=== PATIENT | female | born 1940 | race Caucasian/White ===

== ENCOUNTER 2017-11-03 06:20 | Inpatient (IN) | payer MEDICARE, MEDICAID ==
[2017-10-30 14:00] LABS: BASOPHILS % (AUTO) 0.5 % (0-1); EOSINOPHILS # (AUTO) 0.2 X10'3 (0-0.9); EOSINOPHILS % (AUTO) 3.4 % (0-6); LYMPHOCYTES # (AUTO) 2.8 X10'3 (1.1-4.8); LYMPHOCYTES % (AUTO) 43.6 % (21-51); MEAN CORPUSCULAR HEMOGLOBIN 30.4 PG (27.0-31.0); MEAN CORPUSCULAR HGB CONC 34.3 % (33.0-36.5); MEAN CORPUSCULAR VOLUME 88.7 FL (78-98); MONOCYTES # (AUTO) 0.7 X10'3 (0-0.9); MONOCYTES % (AUTO) 10.5 % (2-12); NEUTROPHILS # (AUTO) 2.7 X10'3 (1.8-7.7); PRE OP HEMATOCRIT 43.7 % (35.0-45.0); PRE OP PLATELET COUNT 329 X10'3 (140-440); RED BLOOD COUNT 4.93 X10'6 (4.20-5.60); RED CELL DISTRIBUTION WIDTH 12.9 % (11.5-14.5)
[2017-10-30 14:05] LABS: CLARITY,URINE Clear (Clear); COLOR,URINE Yellow (Yellow); GLUCOSE, URINE Negative (Neg); KETONES,URINE Negative (Neg); LEUKOCYTE ESTERASE ,URINE Moderate (Neg); NITRITES, URINE Negative (Neg); OCCULT BLOOD,URINE Negative (Neg); PH,URINE 6.5 (4.8-8.0); PROTEIN,URINE Negative (Neg)
[2017-10-30 14:11] LABS: UA COLLECTION TYPE NON-SPECIFIED
[2017-10-30 14:12] LABS: BACTERIA,URINE NONE SEEN /HPF (Neg); RBC,URINE 0-2 /HPF (0-2); TRANSITIONAL EPI CELLS,URINE FEW /HPF; WBC,URINE 0-4 /HPF (0-4)
[2017-10-30 14:13] LABS: HYALINE CASTS 0-3 /LPF (NEGATIVE); MUCUS STRANDS MODERATE /LPF (Neg); SQUAMOUS EPITHELIAL CELL,UR MODERATE /LPF (FEW)
[2017-10-30 14:14] LABS: ALBUMIN 4.3 G/DL (3.4-5.0); ALBUMIN/GLOBULIN RATIO 1.1 (1.1-1.5); ALKALINE PHOSPHATASE 83 IU/L (46-116); BLOOD UREA NITROGEN 19 MG/DL (7-18); BUN/CREATININE RATIO 17.3 (6.6-38.0); CALCIUM 9.9 MG/DL (8.5-10.1); CHLORIDE 104 MMOL/L (99-107); HEMOGLOBIN A1C 5.9 % (4.5-6.2); PRE OP ALT 27 U/L (30-65); PRE OP ANION GAP 10 (8-16); PRE OP AST 20 U/L (10-37); PRE OP BILIRUB, TOTAL 0.3 MG/DL (0.0-1.0); PRE OP GLUCOSE 120 MG/DL (70-104); PRE OP POTASSIUM 4.2 MMOL/L (3.4-5.1); PRE OP SODIUM 143 MMOL/L (135-145); TOTAL CARBON DIOXIDE 28.8 MMOL/L (24-32); TOTAL PROTEIN 8.2 G/DL (6.4-8.2); eGFR 49 ML/MIN
[~2017-11-03] VITALS: Ht 154.9 cm; Wt 62.9 kg
[2017-11-03] VITALS (19 sets, daily range): BP systolic 97–136; BP diastolic 44–76
[~2017-11-03 06:20] MED LIST: ADAL40PE SUBCUT; CYAN100087 IM; DRON400T2 PO; DULO-31 PO; EVOL140S SQ; HYDR200T PO; LIRA0.6P SQ; LIRA0.6P2 SUBCUT; METO-384 PO; PRAS10TA10 PO; ZES2.5T PO; famotidine 20mg tablet PO ONE; ringers solution, lacted 1,000 ML IV SCH
[2017-11-03] MEDS ORDERED: ketorolac trometh. 30mg/ml inj. ONE (06:50)
[2017-11-03] MEDS ORDERED: vancomycin 1,000mg inj ONE (06:51)
[2017-11-03] MEDS ORDERED: ROPIVAcaine 0.5% (5mg/ml) 30ml vial ONE ×2 (06:51→08:06)
[2017-11-03] MEDS ORDERED: ceFAZolin 2gm in dextrose, iso 100 ML IV ONE (07:15)
[2017-11-03] MEDS ORDERED: tranexamic acid inj. 630 MG in normal saline 100ml IV soln 93.7 ML IV ONE (07:16)
[2017-11-03] MEDS ORDERED: LIDOcaine 1% (10mg/ml) 2ml vial ONE (07:20)
[2017-11-03] MEDS ORDERED: vancomycin/NS 1 GM ADD-VANTAGE 250 ML X 1 DOSE IV ONE (07:30)
[2017-11-03] MEDS ORDERED: propofol inj 20 ML IV ONE ×2 (07:59)
[2017-11-03] MEDS ORDERED: LIDOcaine 1%/PF (10mg/ml) 5ml vial ONE ×2 (07:59→08:00)
[2017-11-03] MEDS ORDERED: ePHEDrine 50MG/ML INJ. ONE (08:00)
[2017-11-03] MEDS ORDERED: dexamethasone sod phosphate 4mg/ml inj. ONE (08:00)
[2017-11-03] MEDS ORDERED: ondansetron/PF 4mg/2ml inj ONE (08:00)
[2017-11-03] MEDS ORDERED: phenylephrine 10mg/ml inj IV ONE (08:00)
[2017-11-03] MEDS ORDERED: fentaNYL/PF 50MCG/1 ML 2ML syringe ONE (08:18)
[2017-11-03] MEDS ORDERED: MORPHINE SULFATE/PF 0.5 MG/ML 10ML AMPUL ONE (08:20)
[2017-11-03] MEDS ORDERED: midazolam 2 mg/2 ml injection ONE (08:20)
[2017-11-03] MEDS ORDERED: epiNEPHrine 1 mg/ml inj ONE (09:38)
[2017-11-03] MEDS ORDERED: ringers solution, lacted 1,000 ML IV SCH (10:51)
[2017-11-03] MEDS ORDERED: ondansetron/PF 4mg/2ml inj IV PRN ×2 (10:55→12:05)
[2017-11-03] MEDS ORDERED: labetalol 5mg/ml 20ml inj. IV PRN (10:55)
[2017-11-03] MEDS ORDERED: proCHLORperazine 10 MG/2 ml inj IV PRN (10:55)
[2017-11-03] MEDS ORDERED: fentaNYL/PF 50MCG/1 ML 2ML syringe IV PRN ×2 (10:55)
[2017-11-03] MEDS ORDERED: HYDROmorphone 1 mg/ml syringe IV PRN ×4 (10:55→12:05)
[2017-11-03] MEDS ORDERED: meperidine/PF 25mg/ml syringe IV ONE (10:55)
[2017-11-03] MEDS: potassium cl 20mEq in 1/2 NS 1,000 ML IV SCH ×2 (12:01→20:19)
[2017-11-03] MEDS ORDERED: diphenhydrAMINE 25mg capsule PO PRN ×2 (12:05)
[2017-11-03] MEDS ORDERED: non-formulary drug (Adalimumab (Humira) 1 SYR) SUBCUT SCH (12:05)
[2017-11-03] MEDS ORDERED: EVOLOCUMAB 140 MG SQ SCH (12:05)
[2017-11-03] MEDS ORDERED: acetaminophen 325mg tablet PO PRN (12:05)
[2017-11-03] MEDS ORDERED: bisacodyl 10mg suppository rectal RC PRN (12:05)
[2017-11-03] MEDS ORDERED: oxyCODONE IR 5mg (immed. release) tablet PO PRN (12:05)
[2017-11-03] MEDS ORDERED: magnesium hydroxide 30ml (MOM) UD suspension PO PRN (12:05)
[2017-11-03] MEDS: gabapentin 300mg capsule PO SCH ×2 (13:00→20:18)
[2017-11-03] MEDS: acetaminophen 325mg tablet PO SCH ×2 (13:57→20:18)
[2017-11-03] MEDS: ketorolac tromethamine 15mg/ml inj. IV SCH ×2 (14:32→20:18)
[2017-11-03] MEDS ORDERED: tranexamic acid inj. 630 MG in normal saline 100ml IV soln 100 ML IV ONE (15:00)
[2017-11-03] MEDS: cefazolin 1gm/NS 100mL 100 ML IV SCH ×2 (16:08→23:59)
[2017-11-03] MEDS ORDERED: EVOLOCUMAB SQ SCH (17:00)
[2017-11-03] MEDS: celeCOXIB 100mg capsule PO SCH (20:00)
[2017-11-03] MEDS ORDERED: vancomycin/NS 1 GM ADD-VANTAGE 250 ML IV SCH (20:00)
[2017-11-03] MEDS: dronedarone hcl 400mg tablet PO SCH (20:18)
[2017-11-03] MEDS: sennosides 8.6mg tablet PO SCH (20:19)
[2017-11-03] MEDS ORDERED: diphenhydrAMINE 50 mg/ml inj IV PRN (21:10)
[2017-11-04 02:00] VITALS: BP 90/52
[2017-11-04] MEDS: ketorolac tromethamine 15mg/ml inj. IV SCH ×4 (02:40→19:42)
[2017-11-04] MEDS: acetaminophen 325mg tablet PO SCH ×4 (02:40→19:42)
[2017-11-04] MEDS: potassium cl 20mEq in 1/2 NS 1,000 ML IV SCH ×3 (04:01→13:46)
[2017-11-04] MEDS: oxyCODONE IR 5mg (immed. release) tablet PO PRN ×5 (05:45→21:31)
[2017-11-04 06:00] VITALS: BP 91/60
[2017-11-04 07:15] LABS: BASOPHILS % (AUTO) 0.1 % (0-1); EOSINOPHILS # (AUTO) 0.2 X10'3 (0-0.9); EOSINOPHILS % (AUTO) 1.3 % (0-6); HEMATOCRIT 28.2 % (35.0-45.0); LYMPHOCYTES # (AUTO) 1.7 X10'3 (1.1-4.8); LYMPHOCYTES % (AUTO) 13.8 % (21-51); MEAN CORPUSCULAR HEMOGLOBIN 30.9 PG (27.0-31.0); MEAN CORPUSCULAR HGB CONC 35.4 % (33.0-36.5); MEAN CORPUSCULAR VOLUME 87.4 FL (78-98); MEAN PLATELET VOLUME 7.8 FL (7.4-10.4); MONOCYTES # (AUTO) 1.1 X10'3 (0-0.9); MONOCYTES % (AUTO) 8.8 % (2-12); NEUTROPHILS # (AUTO) 9.2 X10'3 (1.8-7.7); PLATELET COUNT 208 X10'3 (140-440); RED BLOOD COUNT 3.23 X10'6 (4.20-5.60); RED CELL DISTRIBUTION WIDTH 12.5 % (11.5-14.5); WHITE BLOOD COUNT 12.1 X10'3 (4.5-11.0)
[2017-11-04] MEDS: metoprolol succinate 25mg (24-HOUR) SR. Tablet PO SCH (07:16)
[2017-11-04] MEDS: dronedarone hcl 400mg tablet PO SCH ×2 (07:16→19:42)
[2017-11-04] MEDS: gabapentin 300mg capsule PO SCH ×3 (07:17→21:31)
[2017-11-04] MEDS: celeCOXIB 100mg capsule PO SCH ×2 (07:17→20:00)
[2017-11-04] MEDS: prasugrel 10mg tablet PO SCH (07:17)
[2017-11-04] MEDS: hydroxychloroquine 200mg tablet PO SCH (07:18)
[2017-11-04] MEDS: duloxetine 30mg CAPSULE.DR PO SCH (07:19)
[2017-11-04] MEDS: lisinopril 5mg tablet PO SCH (07:21)
[2017-11-04 07:37] LABS: ANION GAP 8 (8-16); CHLORIDE 107 MMOL/L (99-107); POTASSIUM 4.6 MMOL/L (3.5-5.1); SODIUM 139 MMOL/L (135-145)
[2017-11-04] MEDS: aspirin 325mg tablet PO SCH (07:39)
[2017-11-04] MEDS ORDERED: LIRAGLUTIDE 1.8 MG SQ SCH (08:00)
[2017-11-04] MEDS ORDERED: LIRAGLUTIDE 1.8 MG SUBCUT SCH (08:00)
[2017-11-04] MEDS ORDERED: non-formulary drug (Metoprolol Succinate 1 TAB) PO SCH (08:00)
[2017-11-04 10:00] VITALS: BP 85/52
[2017-11-04 14:00] VITALS: BP 110/51
[2017-11-04] MEDS: VICTOZA 1.8 MG SQ SCH (17:30)
[2017-11-04 18:00] VITALS: BP 85/52
[2017-11-04] MEDS: sennosides 8.6mg tablet PO SCH (21:32)
[2017-11-04 22:00] VITALS: BP 131/81
[2017-11-04] MEDS ORDERED: HYDROmorphone 2mg/ml vial IV PRN (23:05)
[2017-11-04] MEDS: HYDROmorphone 2mg/ml vial IV PRN (23:11)
[2017-11-05] MEDS: oxyCODONE IR 5mg (immed. release) tablet PO PRN ×3 (02:40→12:39)
[2017-11-05] MEDS: acetaminophen 325mg tablet PO SCH ×2 (02:40→08:22)
[2017-11-05] MEDS: potassium cl 20mEq in 1/2 NS 1,000 ML IV SCH (04:01)
[2017-11-05] MEDS: HYDROmorphone 2mg/ml vial IV PRN ×2 (05:51→14:05)
[2017-11-05 06:00] VITALS: BP 114/58
[2017-11-05 06:41] LABS: BASOPHILS # (AUTO) 0.1 X10'3 (0-0.2); BASOPHILS % (AUTO) 0.9 % (0-1); EOSINOPHILS # (AUTO) 0.5 X10'3 (0-0.9); EOSINOPHILS % (AUTO) 5.1 % (0-6); HEMATOCRIT 29.4 % (35.0-45.0); HEMOGLOBIN 9.9 g/dl (12.0-16.0); LYMPHOCYTES # (AUTO) 3.3 X10'3 (1.1-4.8); LYMPHOCYTES % (AUTO) 34.1 % (21-51); MEAN CORPUSCULAR HEMOGLOBIN 30.4 PG (27.0-31.0); MEAN CORPUSCULAR HGB CONC 33.7 % (33.0-36.5); MEAN PLATELET VOLUME 7.7 FL (7.4-10.4); MONOCYTES # (AUTO) 1.2 X10'3 (0-0.9); MONOCYTES % (AUTO) 12.6 % (2-12); NEUTROPHILS # (AUTO) 4.5 X10'3 (1.8-7.7); NEUTROPHILS % (AUTO) 47.3 % (42-75); PLATELET COUNT 221 X10'3 (140-440); RED BLOOD COUNT 3.27 X10'6 (4.20-5.60); RED CELL DISTRIBUTION WIDTH 13.1 % (11.5-14.5); WHITE BLOOD COUNT 9.6 X10'3 (4.5-11.0)
[2017-11-05] MEDS: aspirin 325mg tablet PO SCH (08:21)
[2017-11-05] MEDS: gabapentin 300mg capsule PO SCH ×3 (08:21→20:39)
[2017-11-05] MEDS: prasugrel 10mg tablet PO SCH (08:22)
[2017-11-05] MEDS: dronedarone hcl 400mg tablet PO SCH ×2 (08:22→20:39)
[2017-11-05] MEDS: metoprolol succinate 25mg (24-HOUR) SR. Tablet PO SCH (08:23)
[2017-11-05] MEDS: lisinopril 5mg tablet PO SCH (08:23)
[2017-11-05] MEDS: duloxetine 30mg CAPSULE.DR PO SCH (08:23)
[2017-11-05] MEDS: hydroxychloroquine 200mg tablet PO SCH (08:23)
[2017-11-05] MEDS: VICTOZA 1.8 MG SQ SCH (08:29)
[2017-11-05 09:52] VITALS: BP 99/53
[2017-11-05] MEDS ORDERED: acetaminophen 325mg tablet PO PRN (12:05)
[2017-11-05 18:00] VITALS: BP 102/63
[2017-11-05] MEDS: sennosides 8.6mg tablet PO SCH (20:41)
[2017-11-06] MEDS: oxyCODONE IR 5mg (immed. release) tablet PO PRN (01:07)
[2017-11-06] MEDS ORDERED: morphine 10mg/ml inj. IV PRN (04:00)
[2017-11-06] MEDS ORDERED: morphine 5 MG/ML injection IV PRN (04:00)
[2017-11-06 06:00] VITALS: BP 116/53
[2017-11-06] MEDS ORDERED: oxyCODONE/APAP 10/325mg tablet PO PRN (06:05)
[2017-11-06 06:22] LABS: BASOPHILS % (AUTO) 0.4 % (0-1); EOSINOPHILS # (AUTO) 0.5 X10'3 (0-0.9); EOSINOPHILS % (AUTO) 4.6 % (0-6); HEMATOCRIT 28.8 % (35.0-45.0); HEMOGLOBIN 9.9 g/dl (12.0-16.0); LYMPHOCYTES # (AUTO) 2.8 X10'3 (1.1-4.8); MEAN CORPUSCULAR HEMOGLOBIN 30.4 PG (27.0-31.0); MEAN CORPUSCULAR HGB CONC 34.5 % (33.0-36.5); MONOCYTES # (AUTO) 1.1 X10'3 (0-0.9); NEUTROPHILS # (AUTO) 6.4 X10'3 (1.8-7.7); PLATELET COUNT 221 X10'3 (140-440); RED BLOOD COUNT 3.27 X10'6 (4.20-5.60); WHITE BLOOD COUNT 10.9 X10'3 (4.5-11.0)
[2017-11-06] MEDS: oxyCODONE/APAP 10/325mg tablet PO PRN ×2 (07:00→12:12)
[2017-11-06] MEDS: prasugrel 10mg tablet PO SCH (07:20)
[2017-11-06] MEDS: dronedarone hcl 400mg tablet PO SCH (07:21)
[2017-11-06] MEDS: hydroxychloroquine 200mg tablet PO SCH (07:22)
[2017-11-06] MEDS: gabapentin 300mg capsule PO SCH ×2 (07:22→12:10)
[2017-11-06] MEDS: duloxetine 30mg CAPSULE.DR PO SCH (07:23)
[2017-11-06] MEDS: lisinopril 5mg tablet PO SCH (07:24)
[2017-11-06] MEDS: metoprolol succinate 25mg (24-HOUR) SR. Tablet PO SCH (07:24)
[2017-11-06] MEDS: VICTOZA 1.8 MG SQ SCH (07:26)
[2017-11-06] MEDS: aspirin 325mg tablet PO SCH (07:28)
[2017-11-06 10:00] VITALS: BP 105/62
== END 2017-11-06 13:10 | DRG 470 ==
LOC: PAS IN 06:20 → EDSTATUS 08:30 → ORTHO 4S 13:30
PROVIDERS: ADMIT Orthopaedic Surgery; ATTEND Orthopaedic Surgery
PROC: 3E0T3BZ Introduction of Anesthetic Agent into Peripheral Nerves and Plexi, Percutaneous Approach (ICD-10-PCS; 2017-11-03)
PROC: 8E0YXCZ Robotic Assisted Procedure of Lower Extremity (ICD-10-PCS; 2017-11-03)
PROC: 8E0YXBZ Computer Assisted Procedure of Lower Extremity (ICD-10-PCS; 2017-11-03)
PROC: 0SRD0J9 Replacement of Left Knee Joint with Synthetic Substitute, Cemented, Open Approach (ICD-10-PCS; principal; 2017-11-03 09:43)
DX: M17.0 Bilateral primary osteoarthritis of knee (principal); D62 Acute posthemorrhagic anemia; M32.9 Systemic lupus erythematosus, unspecified; I48.2 Chronic atrial fibrillation; E11.9 Type 2 diabetes mellitus without complications; E78.5 Hyperlipidemia, unspecified; I10 Essential (primary) hypertension; I25.10 Atherosclerotic heart disease of native coronary artery without angina pectoris; F32.9 Major depressive disorder, single episode, unspecified; Z88.2 Allergy status to sulfonamides; Z79.899 Other long term (current) drug therapy
CPT/HCPCS: 36415; 80051; 80053; 81001; 82948; 83036; 85025; 87070; 87088; 97110; 97116; 97161; 97530; A6255; A6449; A6455; A7000; C1713; C1758; C1776; J0171; J0690; J1100; J1170; J1200; J1885; J2001; J2250; J2274; J2370; J2405; J2704; J2795; J3010; J3370; J3490; J7030; J7120; Q0163

== ENCOUNTER 2025-06-14 16:10 | Outpatient (CLI) | payer MEDICARE, MEDICAID ==
[~2025-06-14 16:10] MED LIST changes: -DRON400T2 PO; +DRON400T7 PO; -EVOL140S SQ; +EVOL140S2 SQ; -HYDR200T PO; +HYDR200T80 PO; -famotidine 20mg tablet PO ONE; -ringers solution, lacted 1,000 ML IV SCH
--- NOTE | 2025-06-14 16:58 | RADIOLOGY REPORT ---
EXAM: DI ANKLE, COMPLETE(3VW MIN) INDICATION: Primary osteoarthritis TECHNIQUE: 3 views of the left ankle COMPARISON: DI FOOT, COMPLETE (3VW MIN) on DOS: 06/14/25 FINDINGS/IMPRESSION: No radiographic evidence of an acute osseous abnormality. There is no acute fracture, osseous malalignment, or aggressive focal osseous lesion. Small plantar calcaneal spur. Vascular calcifications. Osseous spurring which may be related to prior injury along the deltoid ligament. Curvilinear calcification which may reflect sequelae of the avulsive injury along the anterior talofibular ligament calcaneofibular ligament. Asymmetric joint space loss of the lateral aspect of the tibiotalar joint compatible with degenerative change.
--- NOTE | 2025-06-14 17:02 | RADIOLOGY REPORT ---
EXAM: DI FOOT, COMPLETE (3VW MIN) INDICATION: Primary osteoarthritis TECHNIQUE: 3 views of the left foot COMPARISON: DI ANKLE, COMPLETE(3VW MIN) on DOS: 06/14/25 FINDINGS/IMPRESSION: No radiographic evidence of an acute osseous abnormality. There is no acute fracture, osseous malalignment, or aggressive focal osseous lesion. Large plantar calcaneal spur. Diffusely decreased bone mineral density. Vascular calcifications. Slight cortical thickening along the 2nd metatarsal diaphysis, which may be compatible with stress reaction.
== END 2025-06-14 23:59 | disposition home or self-care (01) ==
LOC: RAD 16:10
PROVIDERS: ATTEND Podiatrist Foot & Ankle Surgery
DX: M19.072 Primary osteoarthritis, left ankle and foot (principal); M25.871 Other specified joint disorders, right ankle and foot; M25.572 Pain in left ankle and joints of left foot; M77.32 Calcaneal spur, left foot
CPT/HCPCS: 73610; 73630

== ENCOUNTER 2025-08-01 06:26 | Inpatient (IN) | payer MEDICARE, MEDICAID ==
[2025-07-26 11:44] LABS: MEAN PLATELET VOLUME 7.9 FL (7.4-10.4); RED CELL DISTRIBUTION WIDTH 13.3 % (11.5-14.5)
[2025-07-26 11:45] LABS: LEUKOCYTE ESTERASE ,URINE SMALL (Neg); NITRITES, URINE NEGATIVE (Neg); OCCULT BLOOD,URINE NEGATIVE (Neg)
[2025-07-26 11:47] LABS: UA COLLECTION TYPE CLN CATCH MIDSTREAM
[2025-07-26 11:51] LABS: MUCUS STRANDS FEW /LPF (Neg); RENAL CELLS, URINE FEW /HPF; SQUAMOUS EPITHELIAL CELL,UR MODERATE /LPF (FEW)
[2025-07-26 11:57] LABS: APTT 26 SECONDS (22-32); CREATININE 0.97 MG/DL (0.40-0.90); INR 1.0 INR; TOTAL CARBON DIOXIDE 26.5 MMOL/L (24-32); eGFR 55 ML/MIN
--- NOTE | 2025-07-26 12:58 | RADIOLOGY REPORT ---
DI CHEST,TWO VIEWS CLINICAL HISTORY: PRE OP CXR COMPARISON: None TECHNIQUE: Frontal and lateral view of the chest was obtained FINDINGS: Lines and Tubes: Dual lead left-sided pacemaker / AICD Lungs: No focal consolidation. Pleura: No effusion. No pneumothorax. Cardiomediastinal contours: Unremarkable Bones: No acute osseous abnormality. IMPRESSION: No acute cardiopulmonary disease.
[2025-08-01] VITALS (22 sets, daily range): BP systolic 80–120; BP diastolic 39–66; PULSE 16–78; RESP 14–24; TEMP 97.1–97.4; O2SAT 88–100
[~2025-08-01] VITALS: Ht 154.9 cm; Wt 56.7 kg
[~2025-08-01 06:26] MED LIST changes: -ADAL40PE SUBCUT; +APIX2.5T PO; +CITA-178 PO; +CLOP75TA34 PO; -CYAN100087 IM; -DRON400T7 PO; -DULO-31 PO; +EZET10TA80 PO; +FURO-150 PO; -HYDR200T80 PO; +ICOS1CAP PO; -LIRA0.6P SQ; -LIRA0.6P2 SUBCUT; +PANT40TA54 PO; -PRAS10TA10 PO; +RANO10005 PO; +SPIR25TA5 PO
[2025-08-01] MEDS: ceFAZolin 2gm/dext,iso 50mL 50 ML IV ONE (06:26)
[2025-08-01] MEDS: DOCUMENT DATE & TIME OF BETA-BLOCKER PO ONE (06:27)
[2025-08-01] MEDS ORDERED: BUPIVAcaine 2.5mg/ml inj 50ml vial (contains preservative) ONE (06:40)
[2025-08-01] MEDS ORDERED: vancomycin 1,000mg inj ONE (06:40)
[2025-08-01] MEDS ORDERED: bacitracin 15gm ointment TP ONE (06:40)
--- NOTE | 2025-08-01 07:03 | ELECTROCARDIOGRAPH REPORT ---
[facility] Test Date: 2025-08-01 Test Time: 06:59:42 Pat Name: ARVIN HURD Department: [facility]-PRE-OP Patient ID: [facility]-[id number] Room: ORTHO 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 THOMAS Huff Measurements Intervals [place] Rate: 70 P: 0 CA: 153 QRS: -7 QRSD: 152 T: 7 QT: 499 QTc: 539 Interpretive Statements Atrial-ventricular dual-paced rhythm No further analysis attempted due to paced rhythm Electronically Signed On 08-01-2025 18:49:[address] THOMAS Huff Please click the below link to view image of tracing.
[2025-08-01] MEDS: ringers solution, lacted 1,000 ML IV SCH ×2 (07:08→14:00)
[2025-08-01] MEDS: ondansetron/PF 4mg/2ml inj ONE (07:49)
[2025-08-01] MEDS ORDERED: cloNIDine hcl/PF 100mcg/ml inj ONE (08:31)
[2025-08-01] MEDS ORDERED: fentaNYL/PF 50MCG/1 ML 2ML syringe ONE (08:32)
[2025-08-01] MEDS ORDERED: propofol inj 20 ML IV ONE (08:32)
[2025-08-01] MEDS ORDERED: midazolam 1 mg/ML 2ml injection ONE (08:32)
[2025-08-01] MEDS ORDERED: ROPIVAcaine 0.5% (5mg/ml) 30ml vial ONE (08:33)
[2025-08-01] MEDS ORDERED: labetalol 20mg/4ml (5mg/ml) syringe IV PRN (08:40)
[2025-08-01] MEDS ORDERED: HYDROmorphone/PF 0.2 MG/ML SYRINGE IV PRN ×2 (08:40)
[2025-08-01] MEDS ORDERED: acetaminophen 1,000mg/100ml IV 100 ML IV PRN (08:40)
[2025-08-01] MEDS ORDERED: hydrALAZINE 20mg/ml inj. IV PRN (08:40)
[2025-08-01] MEDS ORDERED: ondansetron/PF 4mg/2ml inj IV PRN (08:40)
[2025-08-01] MEDS ORDERED: fentaNYL/PF 50MCG/1 ML 2ML syringe IV PRN ×2 (08:40)
[2025-08-01] MEDS: BUPIVAcaine/PF 2.5 mg/ml (0.25%) 30ml vial IJ ONE (10:23)
[2025-08-01] MEDS ORDERED: ondansetron/PF 4mg/2ml inj ONE (11:53)
[2025-08-01] MEDS ORDERED: dexamethasone sod phosphate 4mg/ml inj. ONE (11:54)
--- NOTE | 2025-08-01 12:32 | OPERATIVE REPORT ---
DATE OF SURGERY: 08/01/2025 DICTATING PHYSICIAN: Tahir Desouza DPM DATE OF SURGERY: 08/01/2025 PREOPERATIVE DIAGNOSES: * Painful ankle arthritis, left ankle. * Cystic bony changes along the medial malleolus concerning for potential pathologic fracture intraoperatively. POSTOPERATIVE DIAGNOSES: * Painful ankle arthritis, left ankle. * Cystic bony changes along the medial malleolus concerning for potential pathologic fracture intraoperatively. PROCEDURES: * Prophylactic pinning of the left medial malleolus with a 4.0 mm screw, 48 mm in length. * Total ankle replacement utilizing the [place] 3D stemmed ankle system for the left ankle. SURGEON: Tahir Desouza DPM COMPLICATIONS: None. ESTIMATED BLOOD LOSS: Less than 5 mL. ANESTHESIA: General with a popliteal and a saphenous block given preoperatively. DESCRIPTION OF PROCEDURE: The patient was given 2 g of cefazolin IV 30 minutes prior to skin incision. The patient also had antibiotic solutions used throughout the case consisting of a post lavage with 10 mL of Betadine solution and 3 liters of lactated ringer solution. Additionally, Irrisept was used throughout the case. Bone cement was used at the conclusion of the case for both the tibial and talar components. A C-arm was used throughout the case to confirm appropriate position and alignment of the implants. The procedures as follows: The patient was escorted to the operating room suite where she was prepared and draped in the usual sterile technique. The patient was placed in the supine position. An additional ChloraPrep prepping was done by the surgeon at the end of the prepping by the surgical scrub team. A Selena duffy was used by the surgical OR team in the operating room. Strict adherence to sterile technique was used throughout the case. There was no deviation of sterile technique throughout the case. A C-arm was used. The tourniquet was inflated to 250 mmHg to the left lower extremity after exsanguinating the left lower extremity. The [place] 28 apex stemmed ankle system was used adhering strictly to the surgeon's manual. There were no deviations from the technique manual from the surgeon's guide. Ultimately, a size 1 long tibial tray, with a size 1 talar component was used and a 7-mm polyethylene size 1 left insert was used. The appropriate cuts were made throughout the case. The C-arm confirmed appropriate positioning of the provisional implants and then the final implants were placed according to the surgeon's technique in the surgeon's manual. Again, bone cement was used for both the tibial tray and talar component. The tibial tray and the talar prosthesis components. One gram of Vancomycin powder was doused into the surgical wound at the end of the case. Tissues were closed in layers. Any bleeding vessels were bovied. Neurovascular structures were protected throughout the entire procedure. The patient had a Dennis splint applied to the left lower extremity with the foot at 90 degrees to the leg. The patient was then escorted to PACU with the appropriate postoperative instructions. It should be noted that intraoperatively the ankle joint did show significant articular cartilage loss consistent with significant degenerative changes to the ankle joint. Capillary refill time was noted to be instantaneous upon releasing the tourniquet for toes 1 through 5 left foot. The patient was then escorted to PACU with the appropriate postoperative instructions. Tahir Desouza DPM TID: [id number] RECEIPT: [id number] ZA JOHNSON
[2025-08-01] MEDS: normal saline 1000ml 1,000 ML IV SCH (12:35)
[2025-08-01] MEDS: ceFAZolin/D5W- 1GM premix 50 ML IV ONE (17:03)
[2025-08-01] MEDS: OMEGA-3/DHA/EPA/FISH OIL 1 EACH CAPSULE.DR PO SCH (19:17)
[2025-08-01] MEDS: pantoprazole 40mg Tablet.DR PO SCH (19:17)
[2025-08-01] MEDS ORDERED: ranolazine 500mg SR tablet (Q12H) PO PRN (20:00)
[2025-08-02] VITALS (7 sets, daily range): BP systolic 96–122; BP diastolic 40–46; PULSE 68–73; RESP 14–18; TEMP 97.2–97.7; O2SAT 94–97
[2025-08-02] MEDS: metoprolol succinate 25mg (24-HOUR) SR. Tablet PO SCH (08:00)
[2025-08-02] MEDS ORDERED: EVOLOCUMAB 140 MG SQ SCH (08:00)
[2025-08-02] MEDS ORDERED: glucagon, human recombinant 1mg kit SUBCUT PRN (09:45)
[2025-08-02] MEDS ORDERED: DEXTROSE 15 GM of carb/4 tabs (each vial/BOTTLE has 4 tablets) PO PRN ×2 (09:45)
[2025-08-02] MEDS ORDERED: dextrose 50%-water 50ml dispensing syringe IV PRN ×2 (09:45)
--- NOTE | 2025-08-02 09:49 | CONSULTATION REPORT ---
Consult Providers to CC ~ History of Present Illness Reason for Admit\Complaint: Right total ankle replacement History of Present Illness Paty Prieto is a 84-year-old female with a past medical history of left ankle arthritis, CVA, CAD s/p cardiac stent, ppm placement, systolic heart failure who underwent left total ankle replacement and pinning of medial malleolus on 08/01/25. Patient denies prior cardiac arrhythmia, DVT/PE, or GIB. Patient denies chest pain, palpitations, shortness of breath, abdominal pain, n/v/d, fever, chills, dysuria. Patient is to be admitted for medical management, physical evaluation and placement. Allergies: Coded Allergies: Sulfa (Sulfonamide Antibiotics) (Verified Allergy, Intermediate, ITCHING, 07/31/25) Home Medications Home Medications Active Reported Clopidogrel (Clopidogrel Bisulfate) 75 Mg Tablet 1 Tab PO DAILY Do not stop medication unless instructed by prescriber. Ezetimibe 10 Mg Tablet 1 Tab PO DAILY 30 Days Pantoprazole Sodium 40 Mg Tablet.dr 40 Mg PO BID 30 Days Ranolazine ER (Ranolazine) 1,000 Mg Tab.er.12h 0.5 Tab PO Q12H PRN 30 Days Eliquis (Apixaban) 2.5 Mg Tablet 1 Tab PO Q12H 30 Days Celexa* (Citalopram Hydrobromide) 20 Mg Tablet 1 Tab PO DAILY 30 Days Lasix* (Furosemide) 20 Mg Tablet 1 Tab PO DAILY 30 Days Spironolactone 25 Mg Tablet 1 Tab PO DAILY 30 Days Vascepa (Icosapent Ethyl) 1 Gram Capsule 1 Cap PO BID 30 Days Metoprolol Succinate 50 Mg Tab.sr.24h 0.5 Tab PO DAILY 30 Days Repatha Syringe (Evolocumab) 140 Mg/1 Ml Syringe 140 Mg SQ [id number] Zestril* (Lisinopril) 2.5 Mg Tablet 5 Mg PO DAILY Past Medical History Past Medical History CVA (2024) CAD s/p cardiac stent Systolic heart failure NIDDM HLD Compression fracture of vertebrae Past Surgical History Surgical History Comment Brain tumor resection (2002, 2005) Left TKA Pacemaker implant Cardiac stent Orthopedic surgery Family History Family History: Patient reports no known family medical history. Past Social History Social History Comment Alcohol: Denies Tobacco: Denies, never Illicit drug use: Denies Living situation: Lives at home alone ROS ROS Other than positives in HPI, all 14 review of systems are negative Exam Vitals: Vital Signs Date Time Temp Pulse Resp B/P (MAP) Pulse Ox O2 Delivery O2 Flow Rate FiO2 08/02/25 08:00 70 101/45 (63) 08/02/25 07:59 16 95 Room Air 1.0 08/02/25 06:00 97.2 General: Generalized weakness, A&Ox 3, NAD HEENT: Normocephalic, PERRLA Neck: Supple, trachea midline, no JVD Chest: Clear to auscultation bilaterally Cardiovascular: RRR, S1&S2 Abdomen: Soft and nontender Extremities: Left lower extremity edema Central Nervous System: CN II-XII intact, no focal deficits Musculoskeletal: No paraspinal muscle tenderness, no muscle spasm Skin: Incisions closed Diagnostic Data Diagnostic Data: Laboratory Tests Test 07/26/25 11:20 Prothrombin Time 10.6 SECONDS (9.0-12.0) INR International Normalized Ratio 1.0 INR Activated Partial Thromboplast Time 26 SECONDS (22-32) Coagulation Comments Additional Plan Assessment & Plan Left ankle arthritis with pathological fracture s/p Left total ankle replacement (08/01/25) Hypotension -supportive care, PT eval CVA (2024) CAD s/p cardiac stent 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 Advance care planning: Discussed with patient the importance of advance care planning in case of emergent situation. We discussed various resuscitative measures/ ACP with the patient at the time of admission. Patient voiced understanding and patient has decided on a full code status. Date of Service: Aug 02, 2025 Billing Provider: HILARIA CHADWICK Common Visit Codes: [id number] INP/OBS CARE (HIGH) Secondary Visit Codes: [id number] CARE PLAN 30 MINUTES HILARIA CHADWICK Aug 02, 2025 09:49
[2025-08-02] MEDS: JUVEN Smoothie Arginine/Glut./Ca2+Bmb (Juven 19.3pkt) 240ml cup PO SCH (12:30)
[2025-08-02] MEDS: INSULIN LISPRO 100 UNIT/ML INSULN.PEN MULTI-DOSE SQ SCH (12:34)
[2025-08-02] MEDS: oxyCODONE/APAP 5-325mg tablet PO PRN ×2 (16:24→21:13)
[2025-08-02] MEDS: midodrine 5mg tablet PO PRN (19:03)
[2025-08-03 06:01] LABS: MEAN PLATELET VOLUME 8.3 FL (7.4-10.4); RED CELL DISTRIBUTION WIDTH 13.5 % (11.5-14.5)
[2025-08-03 06:14] LABS: CHOL/HDL RATIO 1.6 (0.00-4.99); CREATININE 1.07 MG/DL (0.40-0.90); LDL CHOLESTEROL 19 MG/DL (50-100); TOTAL CARBON DIOXIDE 25.2 MMOL/L (24-32); eCRCL 31 ML/MIN; eGFR 49 ML/MIN
[2025-08-03 06:32] VITALS: BP 119/56; PULSE 76; RESP 18; TEMP 98.6; O2SAT 92
[2025-08-03 09:48] VITALS: RESP 16; O2SAT 94
[2025-08-03 10:00] VITALS: BP 126/72; PULSE 83; RESP 15; TEMP 97.8; O2SAT 92
--- NOTE | 2025-08-03 10:07 | PROGRESS NOTE ---
DATE: 08/02/2025 DICTATING PHYSICIAN: Tahir Desouza DPM The patient was seen this morning at bedside. I spoke with the nurse and it is apparent that her blood pressure has been low. She has got hypotension and she is also high risk for falling. Physical Therapy saw her, but they did not have her get out of the bed. I spoke with the hospitalist and because of her history of diabetes and now with hypotension and risk for falls, it was felt medically necessary to convert this from a 23-hour stay/outpatient admission to an inpatient admission. The patient will be medically managed by the hospitalist on-call. The patient states that the pain is tolerable to the left lower extremity. The capillary refill time was instantaneous for toes 1-5 of the left foot. The splint is intact and clean. The patient will be followed by me tomorrow as well for further evaluation. The goal is to get her stable for transfer and reduce her risk of falls and also to get the blood pressure normalized. Tahir Desouza DPM TID: [id number] RECEIPT: [id number] MEG/OTONIEL
--- NOTE | 2025-08-03 11:39 | PROGRESS NOTE ---
Daily Progress Note Providers to CC ~ Antibiotic Timeout Antibiotic Ordered?: Yes Subjective No acute events overnight. Patient examined at bedside. No new complaints. Patient denies chest pain, sob, palpitations, abdominal pain, n/v/d. Vss, labs unremarkable. Post-op left lower extremity pain, continued on supportive care. Objective Vital Signs Date Time Temp Pulse Resp B/P (MAP) Pulse Ox O2 Delivery O2 Flow Rate FiO2 08/03/25 09:48 16 94 Nasal Cannula 1.5 08/03/25 07:19 76 08/03/25 06:32 98.6 119/56 (77) Result Diagram: 08/03/2544708/03/25447 Physical Exam General: Generalized weakness, A&Ox 3, NAD HEENT: Normocephalic, PERRLA Neck: Supple, trachea midline, no JVD Chest: Clear to auscultation bilaterally Cardiovascular: RRR, S1&S2 Abdomen: Soft and nontender Extremities: Left lower extremity edema Central Nervous System: CN II-XII intact, no focal deficits Musculoskeletal: No paraspinal muscle tenderness, no muscle spasm Skin: Incisions closed Coagulation Studies Laboratory Tests Test 07/26/25 11:20 Prothrombin Time 10.6 SECONDS (9.0-12.0) INR International Normalized Ratio 1.0 INR Activated Partial Thromboplast Time 26 SECONDS (22-32) Coagulation Comments Problem\Assessment\Plan Assessment & Plan Left ankle arthritis with pathological fracture s/p Left total ankle replacement (08/01/25) Hypotension -supportive care, PT eval CVA (2024) CAD s/p cardiac stent 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
[2025-08-03] MEDS: HYDROmorphone/PF 0.2 MG/ML SYRINGE IV PRN (12:02)
[2025-08-03 12:50] VITALS: BP 138/60; O2SAT 82
[2025-08-03] MEDS ORDERED: EVOLOCUMAB 140 MG SQ SCH (14:56)
[2025-08-03 18:00] VITALS: BP 129/64; PULSE 83; RESP 17; TEMP 98.2; O2SAT 94
[2025-08-03 22:00] VITALS: BP 134/58; PULSE 85; RESP 15; TEMP 98.2; O2SAT 95
--- NOTE | 2025-08-04 04:40 | PROGRESS NOTE ---
DATE: 08/03/2025 DICTATING PHYSICIAN: Tahir Desouza DPM The patient had a total ankle replacement of the left ankle performed on 08/01/2025. The patient is now under the service of the hospitalist team at [facility]. The patient was seen today at bedside with her daughter present. The patient's vital signs are stable. 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 Her pain seems to be managed with morphine. Because of the pain to the ankle and foot, I took the dressing down today to inspect it. The surgical wound is clean. There are no signs of any infection. There is no skin necrosis. There is a little bit of bruising along the lateral aspect of the foot of about 1 cm lateral to the incision site. The toes are pink with a capillary refill time of about 1-2 seconds. The patient has some pain along the posterior aspect of the heel. For this reason, I encouraged the nursing staff to discontinue utilizing the foam incline pad and to use 3 pillows under the calf. A dry clean dressing was reapplied with the splint reinforced. The patient will continue nonweightbearing status. She will continue following the protocol of physical therapy on nonweightbearing to the left lower extremity. The patient will probably need to be transferred to a rehab facility because of her high risk of fall. Tahir Desouza DPM TID: [id number] RECEIPT: [id number] SS/M Geovanni
[2025-08-04 06:00] VITALS: BP 131/73; PULSE 73; RESP 17; TEMP 96.7; O2SAT 96
[2025-08-04 06:36] VITALS: BP 137/73; PULSE 73; RESP 17; TEMP 96.7; O2SAT 96
[2025-08-04 07:02] LABS: MEAN PLATELET VOLUME 8.4 FL (7.4-10.4); RED CELL DISTRIBUTION WIDTH 13.7 % (11.5-14.5)
[2025-08-04 07:45] LABS: CREATININE 0.95 MG/DL (0.40-0.90); TOTAL CARBON DIOXIDE 28.0 MMOL/L (24-32); eCRCL 34 ML/MIN; eGFR 56 ML/MIN
[2025-08-04 08:43] VITALS: RESP 16; O2SAT 96
[2025-08-04 10:00] VITALS: BP 125/58; PULSE 85; RESP 18; TEMP 97.1; O2SAT 96
--- NOTE | 2025-08-04 15:08 | PROGRESS NOTE ---
Daily Progress Note Providers to CC ~ Antibiotic Timeout Antibiotic Ordered?: No Subjective No acute events overnight. Patient examined at bedside. No new complaints, not in acute distress. Patient denies chest pain, sob, palpitations, abdominal pain, n/v/d. Vss, labs unremarkable. Pending rehab. Objective Vital Signs Date Time Temp Pulse Resp B/P (MAP) Pulse Ox O2 Delivery O2 Flow Rate FiO2 08/04/25 10:42 85 08/04/25 10:00 97.1 18 125/58 (80) 96 Room Air 08/04/25 08:43 1.5 Result Diagram: 08/04/2530 08/04/25 06 Physical Exam General: Generalized weakness, A&Ox 3, NAD HEENT: Normocephalic, PERRLA Neck: Supple, trachea midline, no JVD Chest: Clear to auscultation bilaterally Cardiovascular: RRR, S1&S2 Abdomen: Soft and nontender Extremities: Left lower extremity edema Central Nervous System: CN II-XII intact, no focal deficits Musculoskeletal: No paraspinal muscle tenderness, no muscle spasm Skin: Incisions closed Coagulation Studies Laboratory Tests Test 07/26/25 11:20 Prothrombin Time 10.6 SECONDS (9.0-12.0) INR International Normalized Ratio 1.0 INR Activated Partial Thromboplast Time 26 SECONDS (22-32) Coagulation Comments Problem\Assessment\Plan Assessment & Plan Left ankle arthritis with pathological fracture s/p Left total ankle replacement (08/01/25) Hypotension -supportive care, PT eval 08/04: pending rehab CVA (2024) CAD s/p cardiac stent 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
[2025-08-04 18:00] VITALS: BP 139/62; PULSE 102; RESP 18; TEMP 97.9; O2SAT 96
[2025-08-04 22:00] VITALS: BP 122/69; PULSE 99; RESP 12; TEMP 98.3; O2SAT 95
[2025-08-05 06:00] VITALS: BP_SYST 119; BP_SYST 149; BP_DIAS 56; BP_DIAS 78; PULSE 85; PULSE 87; RESP 18; RESP 22; TEMP 98.2; TEMP 98.8; O2SAT 94; O2SAT 95
[2025-08-05 07:18] LABS: MEAN PLATELET VOLUME 8.2 FL (7.4-10.4); RED CELL DISTRIBUTION WIDTH 13.3 % (11.5-14.5)
[2025-08-05 07:59] LABS: CREATININE 1.04 MG/DL (0.40-0.90); TOTAL CARBON DIOXIDE 30.0 MMOL/L (24-32); eCRCL 31 ML/MIN; eGFR 51 ML/MIN
[2025-08-05] MEDS: bisacodyl 5mg tablet.DR PO ONE (13:32)
[2025-08-05 16:18] VITALS: BP 104/55; PULSE 87; RESP 16; TEMP 97.8; O2SAT 97
[2025-08-05 18:00] VITALS: BP 114/61; PULSE 111; RESP 20; TEMP 98.1; O2SAT 90
--- NOTE | 2025-08-05 18:29 | PROGRESS NOTE ---
Daily Progress Note Providers to CC ~ Antibiotic Timeout Antibiotic Ordered?: No Subjective Patient is medically stable for discharge. Patient was discharged today to [facility] today but later pillowcase sewer mentioned that patient can not go to [facility] is due to short staffing Objective Vital Signs Date Time Temp Pulse Resp B/P (MAP) Pulse Ox O2 Delivery O2 Flow Rate FiO2 08/05/25 16:18 97.8 87 16 104/55 (71) 97 Room Air 08/04/25 08:43 1.5 Result Diagram: 08/05/25 0644 08/05/25 0644 General-patient not in any acute distress, alert awake, chronically ill- appearing, age-appropriate, looks comfortable HEENT-atraumatic normocephalic, neck supple without elevated JVD, no thyromegaly or carotid bruit. No lymphadenopathy bilaterally. Eyes-no icterus or pallor seen in eyes Chest-clear to auscultation bilaterally, breathing nonlabored no tachypnea, no wheezing, no crepitation, no crackles. Heart-S1-S2 normal, regular heart rate no murmur Abdomen bowel sounds positive on auscultation, soft nondistended nontender no guarding, no rigidity Skin no active skin rash Neurology-grossly intact, nonfocal alert awake oriented Extremity- no pedal edema able to move all 4 extremities Psychiatry - patient is not confused or agitated cooperated during physical examination Coagulation Studies Laboratory Tests Test 07/26/25 11:20 Prothrombin Time 10.6 SECONDS (9.0-12.0) INR International Normalized Ratio 1.0 INR Activated Partial Thromboplast Time 26 SECONDS (22-32) Coagulation Comments Problem\Assessment\Plan Left ankle arthritis with pathological fracture s/p Left total ankle replacement (08/01/25) Hypotension -supportive carel Physical therapy team recommended rehab CVA (2024) CAD s/p cardiac stent 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 and possibly patient can be discharged tomorrow to [facility] Date of Service: Aug 05, 2025 Billing Provider: JEANNE MORENO MD Common Visit Codes: [id number] INP/OBS CARE(HIGH) JEANNE MORENO MD Aug 05, 2025 18:29
[2025-08-05 22:00] VITALS: BP 117/58; PULSE 98; RESP 18; TEMP 98.6; O2SAT 97
[2025-08-06 06:00] VITALS: BP 113/66; PULSE 104; RESP 18; TEMP 98.8; O2SAT 97
[2025-08-06 07:06] LABS: MEAN PLATELET VOLUME 8.3 FL (7.4-10.4); RED CELL DISTRIBUTION WIDTH 13.5 % (11.5-14.5)
[2025-08-06 07:31] LABS: CREATININE 0.98 MG/DL (0.40-0.90); TOTAL CARBON DIOXIDE 27.1 MMOL/L (24-32); eCRCL 33 ML/MIN; eGFR 54 ML/MIN
[2025-08-06 08:00] VITALS: RESP 14; O2SAT 98
[2025-08-06 10:00] VITALS: BP 117/64; PULSE 97; RESP 14; TEMP 96.4; O2SAT 96
[2025-08-06 16:38] VITALS: RESP 14
--- NOTE | 2025-08-06 18:36 | DISCHARGE SUMMARY ---
Discharge Summary Providers to CC ~ Discharge Summary Admission Diagnosis: LEFT ANKLE SURGERY Hospital Course DATE OF ADMISSION: August 02, 2025 DATE OF DISCHARGE: August 06, 2025 CBC testing done on August 06, 2025 WBC 8.4 hemoglobin 11.4 hematocrit 33.6 platelet count 286. Serum chemistry done on August 06, 2025 sodium 138 potassium 3.9 creatinine 0.98 GFR 54. Hemoglobin A1c 6.8, urine culture showed mixed chay CHEST,TWO VIEWSIMPRESSION: No acute cardiopulmonary disease. 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 Consultants: Tahir Desouza DPM Complications: None Condition on DC: Stable Discharge Summary: As per admitting provider's history and physical note" Paty Prieto is a 84-year-old female with a past medical history of left ankle arthritis, CVA, CAD s/p cardiac stent, ppm placement, systolic heart failure who underwent left total ankle replacement and pinning of medial malleolus on 08/01/25. Patient denies prior cardiac arrhythmia, DVT/PE, or GIB. Patient denies chest pain, palpitations, shortness of breath, abdominal pain, n/v/d, fever, chills, dysuria. 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 Medication reconciliation done for rehab facility. Patient is seen and examined on the day of discharge. All questions and queries answered to the best of my professional medical knowledge. I heard patient's concerns and address appropriately. Physical therapy team recommended rehab discharge for patient. hotel manager Tracy involved in patient's discharge plan. General-patient not in any acute distress, alert awake, chronically ill- appearing, age-appropriate, looks comfortable HEENT-atraumatic normocephalic, neck supple without elevated JVD, no thyromegaly or carotid bruit. No lymphadenopathy bilaterally. Eyes-no icterus or pallor seen in eyes Chest-clear to auscultation bilaterally, breathing nonlabored no tachypnea, no wheezing, no crepitation, no crackles. Heart-S1-S2 normal, regular heart rate no murmur Abdomen bowel sounds positive on auscultation, soft nondistended nontender no guarding, no rigidity Skin no active skin rash Neurology-grossly intact, nonfocal alert awake oriented Extremity- no pedal edema able to move upper extremities, surgical dressing present over left lower extremity. Psychiatry - patient is not confused or agitated cooperated during physical exam ination *Problems/Diagnosis: (1) Ankle fracture, left Total Time Spent on D/C: > 30 Minutes Date of Service: Aug 06, 2025 Billing Provider: JEANNE MORENO MD Common Visit Codes: [id number] DISCH DAY >30min JEANNE MORENO MD Aug 06, 2025 18:35
[2025-08-13] MEDS ORDERED: EVOLOCUMAB 140 MG SQ SCH (08:00)
== END 2025-08-06 16:53 | DRG 469 ==
LOC: PAS 06:26 → ORTHO 4S 12:45
PROVIDERS: ADMIT Podiatrist Foot & Ankle Surgery; ATTEND Podiatrist Foot & Ankle Surgery
PROC: 3E0T3BZ Introduction of Anesthetic Agent into Peripheral Nerves and Plexi, Percutaneous Approach (ICD-10-PCS; 2025-08-01)
PROC: 0SRG0J9 Replacement of Left Ankle Joint with Synthetic Substitute, Cemented, Open Approach (ICD-10-PCS; principal; 2025-08-01 08:44)
DX: M19.072 Primary osteoarthritis, left ankle and foot (principal); M84.672A Pathological fracture in other disease, left ankle, initial encounter for fracture; I50.22 Chronic systolic (congestive) heart failure; I25.10 Atherosclerotic heart disease of native coronary artery without angina pectoris; E11.9 Type 2 diabetes mellitus without complications; E78.5 Hyperlipidemia, unspecified; Z96.652 Presence of left artificial knee joint; I95.9 Hypotension, unspecified; Z79.84 Long term (current) use of oral hypoglycemic drugs; Z95.5 Presence of coronary angioplasty implant and graft; Z86.73 Personal history of transient ischemic attack (TIA), and cerebral infarction without residual deficits
CPT/HCPCS: 36415; 71046; 73600; 76000; 80053; 80061; 81001; 82948; 83036; 85025; 85610; 85730; 87081; 87088; 93005; 97110; 97116; 97161; 97530; 97535; A4615; A4618; A6223; A6253; A6449; A7000; C1713; C1776; G0378; J0690; J0735; J1100; J1171; J1815; J1938; J2250; J2270; J2405; J2704; J2795; J3010; J3373; J3490; J7030; J7120

== ENCOUNTER 2025-09-04 11:06 | Outpatient (CLI) | payer MEDICARE, MEDICAID ==
--- NOTE | 2025-09-04 12:01 | RADIOLOGY REPORT ---
CLINICAL INDICATION: OSTEOARTHRITIS OF LEFT ANKLE TECHNIQUE: 3 radiographic views of the left ankle were obtained. Comparison: DI ANKLE, COMPLETE(3VW MIN) on DOS: 06/14/25 FINDINGS/IMPRESSION: Postsurgical changes are visualized in the distal tibial talar joint. Small plantar calcaneal enthesophyte.
== END 2025-09-04 23:59 | disposition home or self-care (01) ==
LOC: RAD 11:06
PROVIDERS: ATTEND Podiatrist Foot & Ankle Surgery
DX: M19.072 Primary osteoarthritis, left ankle and foot (principal); M77.32 Calcaneal spur, left foot
CPT/HCPCS: 73610